=== PATIENT | male | born 2000 | race Two or more races ===

== ENCOUNTER 2022-03-16 11:49 | Emergency (ER) | payer BC, SELFPAY ==
[2022-03-16] MEDS ORDERED: Dexamethasone 10 MG/ML VIAL ONE (13:10)
== END 2022-03-16 13:26 | disposition home or self-care (01) ==
LOC: CSHERS 11:49
DX: K12.1 Other forms of stomatitis (principal)
CPT/HCPCS: 87081; 87430; 99283; J1100